=== PATIENT | male | born 1955 ===

== ENCOUNTER 2023-12-23 06:09 | Day surgery (SDC) | payer BC, SELFPAY ==
[2023-12-09 09:40] VITALS: BMI 28.5
[2023-12-23] VITALS (10 sets, daily range): BP systolic 121–161; BP diastolic 67–96; BMI 28.0; BMI 28.5
[2023-12-23] MEDS: TYLENOL 1000 MG PO (06:31)
[2023-12-23] MEDS: VANCOCIN 300 MG IV (06:47)
[2023-12-23] MEDS: NORMOSOL-R 1000 IV (06:47)
[2023-12-23] MEDS: VANCOCIN 300 ML IV (06:47)
--- NOTE | 2023-12-23 06:59 | HP.FOC2 ---
Focused History & Physical
Chief Complaint
HPI:
Chief Complaint: Epigastric incisional hernia
HPI / Indication for Planned Procedure: Patient is a 68-year-old male previous abdominal surgical history of having undergone laparoscopic cholecystectomy 20 years ago. He is taking note of a small protrusion/swelling in the epigastric region at
one of his surgical sites. It has slightly increased in size any has had an occasional event of pain and discomfort in the area. Outpatient evaluation confirms the presence of a soft, reducible incisional hernia in the epigastrium manage
laparoscopic cholecystectomy scar site.
Relevant Past Medical History: Hypertension
Relevant Social History: Negative
Relevant Family History: Negative
Relevant Past Surgical History: Positive for (Laparoscopic cholecystectomy, right hip fracture repair)
Review of Systems
Review of Pertinent Systems: All Systems Negative
Medication
See Medication form for detailed medications: Yes
Medication List (including Herbals & OTC):
Centrum 1 dose PO DAILY 12/21/23
Fish Oil 1 dose PO DAILY 12/21/23
amlodipine 5 mg tablet 5 mg PO DAILY 12/21/23
fiber 1 dose PO DAILY 12/21/23
lisinopril 20 mg-hydrochlorothiazide 12.5 mg tablet 1 tab PO DAILY 12/21/23
turmeric 1 dose PO DAILY 12/21/23
Allergies and Reactions
Patient has Allergies: Yes
Noted Allergies and Reactions:
Allergy/AdvReac Type Severity Reaction Status Date / Time
Penicillins Allergy itching, Verified 12/23/23 06:13
hives
Pertinent Physical Exam
All Other Systems: Negative
Head/Neck: Normal
Lungs: Normal
Heart: Normal
Abdomen: Other (Soft, reducible, nontender epigastric incisional hernia)
Diagnosis / Assessment
68-year-old male presenting for scheduled operative correction symptomatic epigastric incisional port site hernia
Plan / Procedure
Open incisional hernia repair with mesh
Anesthesia/Sedation to be done by Anesthesia Provider: Yes
--- NOTE | 2023-12-23 07:02 | W.SUR.PREOP ---
Pre-Operative Surgical Note
-
I have examined this patient prior to the performance of the scheduled procedure.
The patient's condition is unchanged from the time of the current History and
Physical and the patient is able to undergo the scheduled procedure.
--- NOTE | 2023-12-23 08:30 | W.IMMPOSTOP ---
Addendum entered and electronically signed by Yogesh Peña MD 12/23/23 08:37:
#[id number]
Original Note:
Surgical Immed Post Op Note
-
Primary Surgeon: Casey
Assisting Surgeon: Julianna MARSHALL
Pre-op Diagnosis: incisional hernia
Post-op Diagnosis: incisional hernia 1.5cm
Procedure Performed: open IH repair with mesh; ventralexST 6.4cm round
Anesthesia Type: MAC + 1% lido; 0.25% Marcaine w/ epi
Specimen / Cultures: none
Estimated Blood Loss: 4mL
Complications: none immediate
Operative Findings: epigastric incisional hernia at prior lap port site. 1.5 cm defect. underlay preperitoneal repair; ventralexST 6.4cm round with closure of fascial defect.
== END 2023-12-23 09:44 | disposition home or self-care (01) ==
LOC: SDS 06:09
PROVIDERS: ATTENDING PHYSICIAN Surgery; FAMILY PHYSICIAN Internal Medicine
DX: K43.2 Incisional hernia without obstruction or gangrene (principal)
CPT/HCPCS: 49593; 36415; 93005; C1781